=== PATIENT | female | born 1945 | race Caucasian/White ===

== ENCOUNTER → 2017-05-04 07:02 | Day surgery (SDC) | payer MEDICARE ==
--- NOTE | 2017-04-30 21:59 | HP ---
CC: Dr. Theo Sebastian; [facility] in [place] * ADMISSION HISTORY AND PHYSICAL: DATE OF ADMISSION: Will be 05/04/17 ATTENDING SURGEON: Daisy Nguyễn MD * (DICTATED BY DANIELLE MONTENEGRO) CHIEF COMPLAINT: Mammographic abnormality, left breast. HISTORY OF PRESENT ILLNESS: This is a 72-year-old hypertensive female who has undergone routine screening mammography through the [facility] in [place]. On most recent mammogram from 04/17/17, there was noted to be an area of architectural distortion and biopsy was recommended. Ultrasound-guided core biopsy was performed the same day and a biopsy clip placed. Within her chart record, there is a note indicating that this showed radial scar, but I do not have the full report immediately available. The patient had not had any other prior breast biopsies, though did undergo aspiration of a large left breast cyst many years ago. She has not had any changes in her breast, but does not do a regular self-exam secondary to chronically cystic breasts. She was seen in the office by Dr. Nguyễn on at which time exam showed symmetrical breasts without palpable mass in either the left or right breast. Nipples were normal. There is no palpable cervical, supraclavicular, or axillary adenopathy. The patient did undergo radiation (one treatment) to a mole on the center of her chest at age 12. There is a scar present from that treatment. Dr. Nguyễn discussed with her the indications for surgery, the risks, benefits, and alternatives. I did check and her images were received at [facility]. The specific reports had not, but the patient will contact the [facility] to have those forwarded. The patient would like to proceed as scheduled with excision of left breast mammographic abnormality (following needle localization). PAST MEDICAL HISTORY: Hypertension, hypothyroidism, insomnia, anxiety, obesity , cervical spinal stenosis; hx DVT PAST SURGICAL HISTORY: Previous surgeries, total vaginal hysterectomy for benign disease, ORIF of a left metatarsal fracture, tonsillectomy remotely. No reported surgical or anesthesia problems. The patient did sustain a DVT in 2003 following the metatarsal fracture. She was on hormonal replacement at that time. She has not had any other thromboembolic disease before or since. CURRENT MEDICATIONS: 1. Atenolol 25 mg once daily. 2. Levothyroxine 125 mcg once daily. 3. Benadryl 25 mg 2 tablets at h.s. p.r.n. insomnia (uses approximately 3 times weekly). 4. Lorazepam 0.5 mg daily p.r.n. (uses infrequently). DRUG ALLERGIES: SULFA (rash). FAMILY HISTORY: Negative for breast and ovarian cancer and negative for anesthesia problems, bleeding, or clotting disorders. SOCIAL HISTORY: The patient is . 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 She is a former smoker who quit in 1983. She drinks 3 to 4 alcoholic drinks per week. She denies other drug use. REVIEW OF SYSTEMS: General: No recent constitutional symptoms or acute illnesses other than described in the HPI. Cardiovascular: No history of VT, angina, chest pain. She was treated for hypertension. Respiratory: No history of asthma, chronic cough, or shortness of breath. GI: No problems reported. Colonoscopy done earlier this year, which she was told would be her last screening exam. : No problems reported. MEDICAL REVIEW COORDINATOR: As above. Also, she is status post hysterectomy. Endocrine: She was treated for hypothyroidism. No history of diabetes. PHYSICAL EXAMINATION GENERAL: Well-nourished, obese female, in no acute distress. VITAL SIGNS: Height 64 inches, weight 185 pounds, BMI 32, blood pressure 124/80 , pulse 62, respirations 16. HEENT: Pupils equal, round, and reactive. EOMs intact. No conjunctival pallor. Oropharynx: Teeth in good repair. No intraoral lesions. NECK: No lymphadenopathy in the cervical or supraclavicular areas. No thyromegaly or masses. LUNGS: Clear to auscultation. No rales or wheezes. HEART: Regular rate and rhythm. No murmur noted. BREASTS: Not reexamined, see above. ABDOMEN: Soft, nontender to palpation. No palpable masses or organomegaly. GENITALIA: Not done. RECTAL: Not done. BACK: No spinous process or CVA tenderness. EXTREMITIES: No edema. NEUROLOGICAL: Grossly intact. SKIN: Warm and dry. She does have scar from the prior radiation in the center of her chest per Dr. Nguyễn's exam. IMPRESSION: Mammographic abnormality of the left breast. PLAN: Excision mammographic abnormality, left breast (following needle localization). DANIELLE MONTENEGRO [id number]/[facility] #: [id number] DELORES
[~2017-05-04 07:02] MED LIST: Buffered Lidocaine 0.9% SYRIN* 5 ML/SYR SYRINGE INTRADERM ONE; Buffered Lidocaine 0.9% SYRIN* 5 ML/SYR SYRINGE ONE; Bupivacaine 0.5% SDV PF* 30 ML VIAL ONE; DiMENhydriNATE IV* 50 MG/ML VIAL IV PUSH PRN; Famotidine IV* 10 MG/ML 2 ML (20 mg) IV ONE; Famotidine IV* 10 MG/ML 2 ML (20 mg) ONE; KETAMINE HCL* 50 MG/ML 10 ML VIAL ONE; Lidocaine 1% INJ* 10 MG/ML 30 ML SDV ONE; Lidocaine 1% MPF wEPI 200,000* 30 ML SDV ONE; Lidocaine 2.5%/Prilocain 2.5%* 5 GM TUBE ONE; Midazolam* 1 MG/ML 5 ML VIAL (5 MG) ONE; Morphine INJ* 2 MG/ML 1 ML CARPUJECT IV PRN; PROCHLORPERAZINE INJ 5 MG/ML 2 ML VIAL IV PRN; ceFAZolin 2 GM PREMIX (*) 50 ML IVPB ONE; fentaNYL* 50 MCG/ML 2 ML VIAL (100 MCG VIAL) IV PRN; fentaNYL* 50 MCG/ML 2 ML VIAL (100 MCG VIAL) ONE; oxyCODONE/Acetamin 5/325 MG* TAB PO PRN
--- NOTE | 2017-05-04 10:11 | RAD ---
PROCEDURE: Mammographic needle/wire localization of the left breast PREOPERATIVE DIAGNOSIS: Radial scar POSTOPERATIVE DIAGNOSIS: Same COMPARISONS: April 17, 2017 outside study WHEAT GROWER: Ronnie Appiah MD ANESTHESIA: Local anesthesia with 1% lidocaine without epinephrine FLUOROSCOPY TIME: None CONTRAST: None PROCEDURAL NARRATIVE: The procedure was explained to the patient who indicated understanding. Written and verbal informed consent was obtained. An opportunity was given to ask and answer questions. A timeout was performed. The patient was prepped and draped in the usual sterile fashion. Using mammographic guidance, a needle/wire localization system was advanced to the target lesion in the left breast. Once position was confirmed, the needle was removed using pin pull technique. Post localization mammography was performed. The wound was dressed and the wire was secured. FINDINGS: A biopsy marker clip is noted in the left upper outer breast. The tip of the acquired noted in close proximity to the clip. SPECIMENS: Pending COMPLICATIONS: None DISPOSITION: The patient tolerated the procedure well, without complications during or immediately following the procedure. The patient was sent to the surgical suite in good, stable condition. IMPRESSION: 1. TECHNICALLY SUCCESSFUL UNCOMPLICATED LEFT BREAST WIRE LOCALIZATION FOR THE PURPOSES OF EXCISIONAL BIOPSY. 2. HISTOLOGY IS PENDING
[2017-05-04 16:02] VITALS: BP 140/86
--- NOTE | 2017-05-05 01:47 | OP ---
CC: [facility]; Theo Sebastian MD * DATE OF OPERATION: 05/04/17 - [facility] DATE OF : 47 SURGEON: Daisy Nguyễn MD. DEBT COLLECTION SPECIALIST: DANIELLE Donahue ANESTHESIOLOGIST: Orion Boss MD ANESTHESIA: MAC PRE-OP DIAGNOSIS: Left breast mammographic abnormality. POST-OP DIAGNOSIS: Left breast mammographic abnormality. OPERATIVE PROCEDURE: Needle localization excision of left breast mammographic abnormality. INDICATIONS: The patient is a 72-year-old woman with a recent diagnosis of mammographic abnormality, which prompted the plan for surgical intervention after biopsies showed to be a radial scar raising the concern for more aggressive lesions nearby. DESCRIPTION OF PROCEDURE: She was brought to the operating room after she underwent needle localization on the morning of the procedure. She was placed on the OR table in a supine position and given IV sedation. The left breast was prepped and draped in the usual sterile fashion, taking care not to dislodge the localizing wire. Then after infiltrating with local anesthetic, a curvilinear elliptical incision encompassing the lesion was made. Subcutaneous tissue was then divided with electrocautery to excise the mass of tissue from around the wire. The specimen was marked in the usual fashion and handed off. Hemostasis was achieved with electrocautery. The report came back from Radiology that this specimen contained the abnormality, so closure was accomplished. This was done after instilling some additional local into the wound and also placed in clips to candelaria the confluence of the cavity. A 3-0 Vicryl was used to close the subcutaneous tissue and the skin was closed with 4- 0 Prolene in a subcuticular fashion. Steri- Strips and a dry sterile dressing were applied. All sponge and instrument counts were correct. The patient tolerated the procedure well and was transferred to Recovery in a stable condition. [id number] #: [id number] MTDD
== END | disposition home or self-care (01) ==
LOC: SDS 07:02
PROVIDERS: ATTEND Surgery
DX: N60.12 Diffuse cystic mastopathy of left breast (principal); D24.2 Benign neoplasm of left breast; N64.89 Other specified disorders of breast; I10 Essential (primary) hypertension; E03.9 Hypothyroidism, unspecified; F41.9 Anxiety disorder, unspecified; G47.00 Insomnia, unspecified; E66.9 Obesity, unspecified; Z88.2 Allergy status to sulfonamides; Z68.32 Body mass index [BMI] 32.0-32.9, adult
CPT/HCPCS: 88307; A9270-GY; J0690; J2001; J2250; J3010

== ENCOUNTER 2017-07-18 19:17 | Emergency (ER) | payer MEDICARE ==
[2017-07-18 19:26] VITALS: BP 116/68
[2017-07-18] MEDS ORDERED: Lidocaine 1% MPF* 2 ML VIAL INJ ONE (19:35)
[2017-07-18] MEDS ORDERED: Tetan/Diph/Pertus SYR(Tdap)* 0.5 ML SYR(BOOSTRIX) use SYR IM ONE (20:00)
--- NOTE | 2017-07-18 20:01 | ED ---
Skin Complaint - HPI Summary HPI Summary: 72 YO F CUT RIGHT INDEX JPTA WITH A VEGETABLE SLICER. BLEEDING STOPS WITH DIRECT PRESSURE BUT, STARTS BLEEDING AGAIN WITHOUT PRESSURE. NO DECREASED ROM/STRENGTH/NUMBNESS OF FINGER. - History of Current Complaint Chief Complaint: UCLaceration Time Seen by Provider: 07/18/17 19:30 Stated Complaint: LACERATION - Allergy/Home Medications Allergies/Adverse Reactions: Allergies Allergy/AdvReac Type Severity Reaction Status Date / Time Sulfa Antibiotics Allergy Hives Verified 07/18/17 19:18 environmental Allergy Congestion Uncoded 07/18/17 19:18 PMH/Surg Hx/FS Hx/Imm Hx Previously Healthy: Yes Endocrine/Hematology History: Reports: Hx Thyroid Disease - HYPO Cardiovascular History: Reports: Hx Hypertension - on meds, Other Cardiovascular Problems/Disorders - dvt 2003 Respiratory History: Denies: Other Respiratory Problems/Disorders Comment Only: Hx Asthma - ALLERGY TO SULFA AND CATS GI History: Denies: Other GI Disorders History: Reports: Hx Kidney Infection - 1964 Musculoskeletal History: Denies: Hx Rheumatoid Arthritis, Hx Osteoporosis, Other Musculoskeletal History Sensory History: Reports: Hx Cataracts - anyi, Hx Contacts or Glasses - GLASSES Denies: Hx Hearing Aid Opthamlomology History: Reports: Hx Cataracts - anyi, Hx Contacts or Glasses - GLASSES Neurological History: Denies: Other Neuro Impairments/Disorders Psychiatric History: Reports: Hx Anxiety - Surgical History Surgery Procedure, Year, and Place: 2009 RIGHT CATARACT [facility], 2017 benign lumpectomy. 2004 LEFT FOOT 5TH TOE [facility]. HYSTERECTOMY [address] [facility] [place]. TONSILLECTOMY A CHILD. left cataract 2013, Hx Anesthesia Reactions: No Infectious Disease History: No Infectious Disease History: Denies: History Other Infectious Disease, Traveled Outside the [place] in Last 30 Days - Social History Alcohol Use: Weekly Alcohol Amount: 1-3/WEEK Substance Use Type: Reports: None Smoking Status (MU): Former Smoker Amount Used/How Often: LESS HALF PACK/DAY Review of Systems Constitutional: Negative Eyes: Negative ENT: Negative Cardiovascular: Negative Respiratory: Negative Gastrointestinal: Negative Genitourinary: Negative Musculoskeletal: Negative Positive: Other - LACERATION RT INDEX FINGER SC 1CM IN LENGTH Neurological: Negative Psychological: Normal All Other Systems Reviewed And Are Negative: Yes Physical Exam Triage Information Reviewed: Yes Vital Signs On Initial Exam: Initial Vitals Temp Pulse Resp BP Pulse Ox 98.9 F 88 16 116/68 99 07/18/17 19:21 07/18/17 19:21 07/18/17 19:21 07/18/17 19:21 07/18/17 19:21 Vital Signs Reviewed: Yes Appearance: Positive: Well-Appearing, No Pain Distress Skin: Positive: Other - LACERATION 1CM SC DORSUM OF LEFT INDEX FINGER OVER THE DIP Eyes: Positive: Normal, EOMI, MARIA LUISA Neck: Positive: Supple Musculoskeletal: Positive: Normal Neurological: Positive: Normal Psychiatric: Positive: Normal AVPU Assessment: Alert Procedures - Laceration/Wound Repair 1 Location: Other - LEFT INDEX FINGER SC 1 CM Description: Linear Anesthesia: 1.0% Betadine Prep?: No - SHUR CLENS Laceration/Wound Explored: clean Closure: Single Layer Debridement: NONE Suture Type: Prolene - 6-0 PROLENE #3 SUTURES Number of Sutures: 3 Layer Closure?: No Sterile Dressing Applied?: Yes Diagnostics - Vital Signs Vital Signs Temp Pulse Resp BP Pulse Ox 07/18/17 19:21 98.9 F 88 16 116/68 99 - Laboratory Lab Statement: Any lab studies that have been ordered have been reviewed, and results considered in the medical decision making process. Course/Dx - Course Course Of Treatment: TDAP GIVEN - Diagnoses Provider Diagnoses: Laceration of finger of right hand Discharge - Discharge Plan Condition: Stable Disposition: HOME Patient Education Materials: Finger Laceration (ED) Referrals: Theo Sebastian MD [Primary Care Provider] - Additional Instructions: FOLLOW UP WITH YOUR DOCTOR. SUTURES OUT IN 8-10 DAYS. YOU HAD A TDAP SHOT TODAY. GET RECHECKED FOR ANY WORSENING OF YOUR CONDITION; PAIN, SIGNS OF INFECTION OR QUESTIONS OR CONCERNS.
== END 2017-07-18 20:11 | disposition home or self-care (01) ==
LOC: UCEAST 19:17
DX: S61.211A Laceration without foreign body of left index finger without damage to nail, initial encounter (principal); I10 Essential (primary) hypertension; Z88.2 Allergy status to sulfonamides; Z91.048 Other nonmedicinal substance allergy status; Z87.891 Personal history of nicotine dependence; W45.8XXA Other foreign body or object entering through skin, initial encounter; Y92.9 Unspecified place or not applicable
CPT/HCPCS: 12001; 90471; 90715; 96372; 99211; G0463

== ENCOUNTER 2017-07-27 14:52 | Emergency (ER) | payer MEDICARE ==
[2017-07-27 15:04] VITALS: BP 134/91
--- NOTE | 2017-07-27 15:04 | UC ---
Laceration HPI - HPI Summary HPI Summary: Pt presents for suture removal of 3 sutures to her right index finger placed on 07/18. She has not had any fever, chills, redness, drainage, bleeding, edema, or decreased ROM. - History Of Current Complaint Hx Obtained From: Patient Laceration Location: Finger Mechanism Of Injury: Sharp Trauma Onset/Duration: Sudden Onset Pain Intensity: 0 Pain Scale Used: 0-10 Numeric <Anatoly Hannon - Last Filed: 07/27/17 16:40> <Haily Mathis - Last Filed: 07/27/17 21:22> - History Of Current Complaint Chief Complaint: UCLaceration Stated Complaint: suture removal Time Seen by Provider: 07/27/17 14:57 - Allergies/Home Medications Allergies/Adverse Reactions: Allergies Allergy/AdvReac Type Severity Reaction Status Date / Time Sulfa Antibiotics Allergy Hives Verified 07/27/17 14:59 environmental Allergy Congestion Uncoded 07/27/17 14:59 PMH/Surg Hx/FS Hx/Imm Hx Endocrine History: Hypothyroidism Psychological History: Anxiety - Surgical History Surgical History: Yes Surgery Procedure, Year, and Place: 2009 RIGHT CATARACT [facility] [place], 2017 benign lumpectomy. 2004 LEFT FOOT 5TH TOE [facility]. HYSTERECTOMY 1999 [facility] [place]. TONSILLECTOMY A CHILD. left cataract 2013, - Social History Occupation: Retired Lives: With Family Alcohol Use: Weekly Alcohol Amount: 1-3/WEEK Substance Use Type: None Smoking Status (MU): Former Smoker Amount Used/How Often: LESS HALF PACK/DAY When Did the Patient Quit Smoking/Using Tobacco: 1983 <Anatoly Hannon - Last Filed: 07/27/17 16:40> Review of Systems Constitutional: Negative Skin: Other - Laceration to right index finger Respiratory: Negative Cardiovascular: Negative Neurological: Negative All Other Systems Reviewed And Are Negative: Yes <Anatoly Hannon - Last Filed: 07/27/17 16:40> Physical Exam Triage Information Reviewed: Yes Appearance: Well-Appearing, Well-Nourished Vital Signs: Initial Vital Signs Temp 98.4 F 07/27/17 15:00 Pulse 75 07/27/17 15:00 Resp 18 07/27/17 15:00 BP 134/91 07/27/17 15:00 Pulse Ox 96 07/27/17 15:00 Vital Signs Reviewed: Yes Musculoskeletal: Positive: Strength Intact - Right index finger, ROM Intact - Right index finger, No Edema - Right index finger Neurological: Positive: Alert, Other: - Sensations intact right index finger Psychological: Positive: Age Appropriate Behavior Skin: Positive: Other - ~8mm linear laceration to right index finger pad with [address] No erythema, drainage, edema, bleeding, or discharge. Lac appears healed with excellent approximation. <Anatoly Hannon - Last Filed: 07/27/17 16:40> Vital Signs: Initial Vital Signs Temp 98.4 F 07/27/17 15:00 Pulse 75 07/27/17 15:00 Resp 18 07/27/17 15:00 BP 134/91 07/27/17 15:00 Pulse Ox 96 07/27/17 15:00 <Haily Mathis - Last Filed: 07/27/17 21:22> Laceration Course/Dx - Course/Dx Course Of Treatment: 3 prolene sutures removed. Laceration has completely healed with excellent approximation. Pt tolerated removal well. F/u prn - Differential Dx - Laceration/Wound Provider Diagnoses: Suture removal 3 sutures <Anatoly Hannon - Last Filed: 07/27/17 16:40> Discharge <Anatoly Hannon - Last Filed: 07/27/17 16:40> <Haily Mathis - Last Filed: 07/27/17 21:22> - Discharge Plan Condition: Stable Disposition: HOME Patient Education Materials: Stitches Removal (ED) Referrals: Theo Sebastian MD [Primary Care Provider] - Additional Instructions: If you develop a fever, shortness of breath, chest pain, new or worsening symptoms - please call your PCP or go to the ED. Your blood pressure was high at todays visit. Please see your primary provider within 4 weeks for recheck and re-evaluation. Attestations Provider Attestation: I was available for consultation. I did not have direct patient contact with this patient. <Haily Mathis - Last Filed: 07/27/17 21:22>
== END 2017-07-27 15:18 | disposition home or self-care (01) ==
LOC: UCEAST 14:52
DX: S61.210D Laceration without foreign body of right index finger without damage to nail, subsequent encounter (principal); W45.8XXD Other foreign body or object entering through skin, subsequent encounter; E03.9 Hypothyroidism, unspecified; F41.9 Anxiety disorder, unspecified; Z88.2 Allergy status to sulfonamides; Z87.891 Personal history of nicotine dependence
CPT/HCPCS: 99211; G0463